=== PATIENT | female | born 1970 | race Caucasian/White ===

== ENCOUNTER → 2016-06-02 | Outpatient (CLI) | payer BC ==
[2016-06-02 15:33] VITALS: BP 116/76
== END ==
LOC: AMSURD 15:07
DX: Z00.00 Encounter for general adult medical examination without abnormal findings (principal); R55 Syncope and collapse

== ENCOUNTER → 2017-01-01 | Outpatient (CLI) | payer BC ==
[2016-06-02 15:33] VITALS: BP 116/76
== END ==
LOC: LAB 14:40
DX: K06.9 Disorder of gingiva and edentulous alveolar ridge, unspecified (principal)